=== PATIENT | male | born 1965 | race African-American/Black ===

== ENCOUNTER 2019-10-01 19:42 | Inpatient (IN) | payer BC ==
[~2019-10-01] VITALS: Ht 195.6 cm; Wt 100.5 kg
[2019-10-01 22:17] VITALS: Ht 195.6 cm; Wt 100.5 kg
[2019-10-02] LABS: BASOPHIL % 0.2 % (0-2)
[2019-10-02 00:02] LABS: PLATELET COUNT 433 x10^3mcL (130-400); RED CELL DISTRIBUTION WIDTH 15.6 % (11.5-14.5)
[2019-10-02 00:16] LABS: CALCIUM 8.7 mg/dL (8.5-10.1); CARBON DIOXIDE 21.6 mmol/L (21-32); CREATININE SERUM 1.9 mg/dL (0.7-1.3); POTASSIUM SERUM 4.9 mmol/L (3.5-5.1)
[2019-10-02 00:21] LABS: BILIRUBIN TOTAL 0.44 mg/dL (0.20-1.00); TOTAL PROTEIN, SERUM 7.9 g/dL (6.4-8.2)
[2019-10-02 00:23] LABS: ALBUMIN 2.4 g/dL (3.4-5.0)
[2019-10-02 00:39] LABS: C REACTIVE PROTEIN 33.6 mg/dL (<=0.9)
[2019-10-02 01:59] LABS: ERYTHROCYTE SED RATE 88 mm/hr (0-20)
[2019-10-02 02:04] LABS: UA SPECIFIC GRAVITY 1.015 (1.005-1.035); microscopic required? YES; urine erythrocyte NEGATIVE (NEGATIVE)
[2019-10-02 03:46] VITALS: BP 110/49
[2019-10-02 03:52] LABS: CHOLESTEROL/HDL RATIO 4.4
[2019-10-02 05:20] VITALS: BP 112/47
[2019-10-02 07:56] LABS: IRON 11 ug/dL (65-170); TOTAL IRON BINDING CAPACITY 116 ug/dL (250-450)
[2019-10-02 08:00] LABS: PLATELET COUNT 420 x10^3mcL (130-400); RED CELL DISTRIBUTION WIDTH 15.6 % (11.5-14.5)
[2019-10-02 08:07] LABS: CALCIUM 8.3 mg/dL (8.5-10.1); CARBON DIOXIDE 23.2 mmol/L (21-32); CREATININE SERUM 1.8 mg/dL (0.7-1.3); MAGNESIUM 2.8 mg/dL (1.8-2.4); PHOSPHOROUS 4.5 mg/dL (2.5-4.9); POTASSIUM SERUM 4.7 mmol/L (3.5-5.1)
[2019-10-02 08:13] LABS: AMPHETAMINE QUAL UR NONE DETECTED (See below)
[2019-10-02 08:28] VITALS: BP 127/61
[2019-10-02 12:27] LABS: BAND NEUTROPHIL 0 % (0-10); MONOCYTE 8 % (0-7); SEGMENTED NEUTROPHILS 83 % (37-75); rbc morphology (normal/abnorm) NORMAL (NORMAL)
[2019-10-02 13:36] VITALS: BP 126/64
[2019-10-02 16:28] VITALS: BP 125/58
[2019-10-02 21:15] VITALS: BP 120/58
[2019-10-03 05:53] VITALS: BP 104/44
[2019-10-03 07:22] LABS: BASOPHIL % 0 % (0-2); PLATELET COUNT 407 x10^3mcL (130-400); RED CELL DISTRIBUTION WIDTH 15.5 % (11.5-14.5)
[2019-10-03 07:57] LABS: CALCIUM 8.2 mg/dL (8.5-10.1); CARBON DIOXIDE 24.7 mmol/L (21-32); CREATININE SERUM 1.7 mg/dL (0.7-1.3); MAGNESIUM 2.5 mg/dL (1.8-2.4); PHOSPHOROUS 4.5 mg/dL (2.5-4.9)
[2019-10-03 08:00] LABS: POTASSIUM SERUM 6.1 mmol/L (3.5-5.1)
[2019-10-03 09:16] VITALS: BP 98/50
[2019-10-03 13:29] VITALS: BP 115/60
[2019-10-03 14:17] LABS: RED CELL DISTRIBUTION WIDTH 15.9 % (11.5-14.5)
[2019-10-03 14:55] LABS: BAND NEUTROPHIL 2 % (0-10); MONOCYTE 3 % (0-7); SEGMENTED NEUTROPHILS 85 % (37-75); rbc morphology (normal/abnorm) NORMAL (NORMAL)
[2019-10-03 15:10] LABS: PLATELET COUNT 517 x10^3mcL (130-400)
[2019-10-03 17:51] VITALS: BP 119/57
[2019-10-03 20:48] VITALS: BP 120/60
[2019-10-04 05:30] VITALS: BP 118/60
[2019-10-04 07:38] LABS: BASOPHIL % 0.3 % (0-2)
[2019-10-04 07:56] LABS: CALCIUM 8.5 mg/dL (8.5-10.1); CARBON DIOXIDE 26.6 mmol/L (21-32); CREATININE SERUM 1.6 mg/dL (0.7-1.3); POTASSIUM SERUM 5.3 mmol/L (3.5-5.1)
[2019-10-04 08:03] LABS: PLATELET COUNT 447 x10^3mcL (130-400); RED CELL DISTRIBUTION WIDTH 15.9 % (11.5-14.5)
[2019-10-04 08:33] VITALS: BP 116/58
[2019-10-04 21:20] VITALS: BP 119/54
[2019-10-05 05:15] VITALS: BP 107/55
[2019-10-05 08:16] VITALS: BP 129/63
[2019-10-05 09:29] LABS: BASOPHIL % 0.7 % (0-2)
[2019-10-05 09:31] LABS: RED CELL DISTRIBUTION WIDTH 15.9 % (11.5-14.5)
[2019-10-05 09:32] LABS: PLATELET COUNT 524 x10^3mcL (130-400)
[2019-10-05 09:45] LABS: CALCIUM 8.3 mg/dL (8.5-10.1); CARBON DIOXIDE 25.3 mmol/L (21-32); CREATININE SERUM 1.6 mg/dL (0.7-1.3); MAGNESIUM 1.6 mg/dL (1.8-2.4); POTASSIUM SERUM 4.3 mmol/L (3.5-5.1)
[2019-10-05 12:08] VITALS: BP 113/64
[2019-10-05] MEDS ORDERED: ZES5 PO (12:46)
[2019-10-05] MEDS ORDERED: FER300 PO (12:46)
[2019-10-05] MEDS ORDERED: VANCOMYCIN PER PHARM MC (12:47)
[2019-10-05 16:51] VITALS: BP 105/57
[2019-10-05 20:13] VITALS: BP 97/54
[2019-10-06 04:47] VITALS: BP 134/59
[2019-10-06 08:27] VITALS: BP 120/63
[2019-10-06 09:19] LABS: PLATELET COUNT 512 x10^3mcL (130-400); RED CELL DISTRIBUTION WIDTH 15.6 % (11.5-14.5)
[2019-10-06 09:41] LABS: CALCIUM 8.8 mg/dL (8.5-10.1); CARBON DIOXIDE 24.5 mmol/L (21-32); CREATININE SERUM 1.4 mg/dL (0.7-1.3)
[2019-10-06 12:48] VITALS: BP 110/55
[2019-10-06 14:18] LABS: BAND NEUTROPHIL 7 % (0-10); MONOCYTE 6 % (0-7); SEGMENTED NEUTROPHILS 65 % (37-75)
[2019-10-06 14:19] LABS: METAMYELOCTE 2 % (0-2); MYELOCYTE 3 % (0-2); rbc morphology (normal/abnorm) ABNORMAL (NORMAL)
[2019-10-06 14:20] LABS: PLATELET MORPHOLOGY LARGE PLATELET SEEN
[2019-10-06 16:41] VITALS: BP 115/56
[2019-10-06 20:32] VITALS: BP 99/54
[2019-10-07 05:34] VITALS: BP 123/58
[2019-10-07 08:41] VITALS: BP 93/59
[2019-10-07 09:00] LABS: BASOPHIL % 0.5 % (0-2)
[2019-10-07 10:20] LABS: PLATELET COUNT 480 x10^3mcL (130-400); RED CELL DISTRIBUTION WIDTH 15.8 % (11.5-14.5)
[2019-10-07 13:46] VITALS: BP 121/56
[2019-10-07 14:26] LABS: CALCIUM 8.2 mg/dL (8.5-10.1); CREATININE SERUM 1.4 mg/dL (0.7-1.3); MAGNESIUM 1.9 mg/dL (1.8-2.4); POTASSIUM SERUM 5.1 mmol/L (3.5-5.1)
== END 2019-10-07 17:34 | disposition short-term general hospital (02) | DRG 853 ==
LOC: ED 19:42 → MU 10-02 01:18
PROVIDERS: Emergency Medicine; Family Medicine; Podiatrist Foot & Ankle Surgery; ADMIT Student in an Organized Health Care Education/Training Program; ATTEND Student in an Organized Health Care Education/Training Program
PROC: 0JDR0ZZ Extraction of Left Foot Subcutaneous Tissue and Fascia, Open Approach (ICD-10-PCS; principal; 2019-10-02 14:00)
PROC: 02HV33Z Insertion of Infusion Device into Superior Vena Cava, Percutaneous Approach (ICD-10-PCS; 2019-10-03)
PROC: B548ZZA Ultrasonography of Superior Vena Cava, Guidance (ICD-10-PCS; 2019-10-03)
DX: A41.9 Sepsis, unspecified organism (principal); E43 Unspecified severe protein-calorie malnutrition; L03.116 Cellulitis of left lower limb; E87.1 Hypo-osmolality and hyponatremia; I10 Essential (primary) hypertension; E78.00 Pure hypercholesterolemia, unspecified; Z20.828 Contact with and (suspected) exposure to other viral communicable diseases; E11.649 Type 2 diabetes mellitus with hypoglycemia without coma; E11.621 Type 2 diabetes mellitus with foot ulcer; D63.8 Anemia in other chronic diseases classified elsewhere; E87.8 Other disorders of electrolyte and fluid balance, not elsewhere classified; E11.610 Type 2 diabetes mellitus with diabetic neuropathic arthropathy; E11.51 Type 2 diabetes mellitus with diabetic peripheral angiopathy without gangrene; L97.529 Non-pressure chronic ulcer of other part of left foot with unspecified severity; Z87.440 Personal history of urinary (tract) infections; Z79.4 Long term (current) use of insulin; Z83.3 Family history of diabetes mellitus; Z82.49 Family history of ischemic heart disease and other diseases of the circulatory system; Z68.26 Body mass index [BMI] 26.0-26.9, adult; Z79.899 Other long term (current) drug therapy
CPT/HCPCS: 82962; 83880; 85378; 97116-GP; 97530-GP; G0378; J1815; J2405; J2543; J2704; J3010; J3370; J3490; J7030; J7050; Q0092; U0003-CS